=== PATIENT | male | born 1960 | race Caucasian/White ===

== ENCOUNTER 2017-03-08 05:27 | Day surgery (SDC) | payer OTHER ==
[~2017-03-08] VITALS: Ht 170.2 cm; Wt 75.4 kg
[2017-03-08 06:25] VITALS: Ht 170.2 cm; Wt 75.4 kg
[2017-03-08] MEDS ORDERED: IBUP100T46 PO (06:32)
[2017-03-08] MEDS ORDERED: PANT40TA4 PO (06:32)
[2017-03-08 06:56] VITALS: BP 125/69; PULSE 58; RESP 16
--- NOTE | 2017-03-08 07:05 | CONS ---
DATE OF ADMISSION: 03/08/2017 DATE OF CONSULTATION: PREOPERATIVE GASTROENTEROLOGY CONSULTATION NOTE Dear Dr. Simmons, I thank you very much for this kind referral. SUBJECTIVE: Mr. Delfino Petty is a 56-year-old male patient who has been referred to me for further evaluation of abdominal pain. The patient states he has got epigastric pain, which is not completel y responding to therapy with pantoprazole. There is no past history of peptic ulcer disease. Patie nt has been taking ibuprofen for the back pain. There is no history of gallstones. He does not hav e any fever, chills or jaundice. There is no history of liver disease. The patient has noticed a c hange in the bowel habit. There is no past history of colon neoplasm. The patient never had screen ing colonoscopy. He is not a hypertensive or diabetic. He does not have any heart disease or lung problem. There is no history of kidney disease. SOCIAL HISTORY: He is a nonsmoker. He does not abuse alcohol. FAMILY HISTORY: Negative for gastrointestinal tract neoplasm. ALLERGIES: HE STATES HE IS ALLERGIC TO PENICILLIN. MEDICATIONS: 1. Pantoprazole. 2. Ibuprofen. PHYSICAL EXAMINATION: GENERAL: He is 5 feet 7 inches tall and he weighs 170 pounds. HEART: Examination of the heart reveals normal first and second heart sounds. LUNGS: Clear. ABDOMEN: Soft without any distention. Liver and spleen are not palpable. There are no masses. Th ere is no focal tenderness. Normal bowel sounds are heard. CENTRAL NERVOUS SYSTEM: Does not reveal any focal neurological deficit. IMPRESSION: 1. Upper abdominal pain, not responding to therapy with pantoprazole. 2. The patient has been taking ibuprofen for arthritis. 3. Change in the bowel habit. 4. The patient never had screening colonoscopy. 5. HISTORY OF ALLERGY TO PENICILLIN. PLAN: 1. Endoscopic examination to rule out peptic ulcer disease. 2. Screening colonoscopy at a later date. The procedures and possible complications are well explained to the patient. He understands and con sents to the procedures. I thank you once again. With warmest personal regards, Dictated By: MICHAEL MORRIS/AIDEE Conf#: [id number] DID#: [id number]
[2017-03-08 07:35] VITALS: BP 148/85; PULSE 62; RESP 16
[2017-03-08] MEDS ORDERED: MIDAZOLAM 1 MG/ML 2 ML INJ ONE (07:39)
[2017-03-08] MEDS ORDERED: FENTAnyl 50 MCG/ML VIAL ONE (07:39)
[2017-03-08 07:55] VITALS: BP 118/67; PULSE 58; RESP 15
--- NOTE | 2017-03-08 07:59 | GILP ---
DATE OF PROCEDURE: NAME OF PROCEDURES: Esophagogastroduodenoscopy and biopsy. SURGEON: Michael Tinajero MD PREOPERATIVE DIAGNOSIS: Abdominal pain. POSTOPERATIVE DIAGNOSES: 1. A lot of residual food in the stomach, making the exam incomplete and inadequate. 2. Gastritis. 3. Gastric mucosal biopsies were taken for Helicobacter pylori test. INDICATION FOR THE PROCEDURE: Mr. Delfino Petty is a 56-year-old male patient who had upper abdomina l pain, not responding to therapy. The patient was scheduled for endoscopic examination for further evaluation. The procedure and possible complications were well explained to the patient, he understood and conse nted to the procedure. DESCRIPTION OF PROCEDURE: Under the influence of fentanyl and Versed, the gastroscope was carefully introduced into the esophagus and under direct vision, it was advanced to the stomach. FINDINGS: The patient was noted to have large amount of residual food in the stomach, making the ex am incomplete and inadequate. Gastric mucosal biopsy was taken for H. pylori test. The patient was noted to have gastritis. He tolerated the procedure very well and there was no complication from the procedure. At the end o f the procedure, he was awake with stable vital signs and he was discharged home to the care of his family. IMPRESSION: 1. Large amount of residual food in the stomach, making the exam incomplete and inadequate. 2. Gastritis. 3. Gastric mucosal biopsies were taken for Helicobacter pylori test. PLAN: 1. Continue pantoprazole. 2. Await H. pylori test report. 3. The patient will need repeat endoscopy with prolonged fasting. Dictated By: MICHAEL MORRIS/AIDEE Conf#: [id number] DID#: [id number]
== END 2017-03-08 12:02 | disposition home or self-care (01) ==
LOC: GIL 05:27
PROVIDERS: ATTEND Internal Medicine Gastroenterology
DX: K29.70 Gastritis, unspecified, without bleeding (principal)
CPT/HCPCS: 43239; 87081; J2250; J3010; Z7610

== ENCOUNTER 2017-05-09 14:51 | Day surgery (SDC) | payer OTHER ==
[~2017-05-09] VITALS: Ht 170.2 cm; Wt 74.2 kg
[~2017-05-09 14:51] MED LIST: IBUP100T46 PO; PANT40TA4 PO
[2017-05-09 15:41] VITALS: Ht 170.2 cm; Wt 74.2 kg
[2017-05-09 17:01] VITALS: BP 122/58; PULSE 50; RESP 12
--- NOTE | 2017-05-09 17:29 | OPPN ---
Date/Time of Note Date/Time of Note DATE: 05/09/17 TIME: 17:27 Operative Report Preoperative Diagnosis Screening Postoperative Diagnosis Internal hemorrhoids No colon neoplasm identified Operation/Procedure Performed Colonoscopy Anesthesia: other Estimated blood loss: none Complications: None MICHAEL HERNADEZ MD May 09, 2017 17:29
[2017-05-09 17:57] VITALS: BP 137/69; PULSE 54; RESP 14
[2017-05-09] MEDS ORDERED: FENTAnyl 50 MCG/ML VIAL ONE (18:01)
[2017-05-09] MEDS ORDERED: MIDAZOLAM 1 MG/ML 2 ML INJ ONE ×2 (18:01)
--- NOTE | 2017-05-09 18:50 | GILP ---
DATE OF PROCEDURE: 05/09/2017 PREOPERATIVE DIAGNOSIS: Screening colonoscopy. POSTOPERATIVE DIAGNOSES: 1. Colonoscopy all the way to the cecum. 2. Internal hemorrhoids. 3. No colon neoplasm was identified. PROCEDURE PERFORMED: Colonoscopy. INDICATION FOR PROCEDURE: Mr. Delfino Petty is a 56-year-old male patient who was scheduled for a screening colonoscopy. The procedure and possible complications were well explained to the patient. The patient understood and consented to the procedure. DESCRIPTION OF PROCEDURE: Under the influence of fentanyl and Versed the colonoscope was carefully introduced in the rectum and under direct vision it was advanced all the way to the cecum. Findings, the patient had internal hemorrhoids. No colon neoplasm was identified. He tolerated the procedure very well. There was no complications from the procedure. At the end of procedure he was awake with stable vital signs and he was discharged home in the care of his family. IMPRESSION: 1. Colonoscopy all the way to the cecum. 2. Internal hemorrhoids. 3. No colon neoplasm was identified. PLAN: Next screening colonoscopy in 10 years. Dictated By: MD ARTURO Briscoe/dano/enrrique /Document#: [id number] CC: Fransisco Tinajero MD;*EndCC*
== END 2017-05-09 18:06 | disposition home or self-care (01) ==
LOC: GIL 14:51
PROVIDERS: ATTEND Internal Medicine Gastroenterology
DX: Z12.11 Encounter for screening for malignant neoplasm of colon (principal); K64.8 Other hemorrhoids
CPT/HCPCS: 45378; J2250; J3010